=== PATIENT | female | born 1995 | race African-American/Black ===

== ENCOUNTER 2016-10-16 13:29 | Emergency (ER) | payer SELFPAY ==
[~2016-10-16] VITALS: Ht 152.4 cm; Wt 56.7 kg
[2016-10-16 14:03] VITALS: BP 123/67
[2016-10-16 15:10] VITALS: BP 123/67
--- NOTE | 2016-10-16 15:11 | Emergency Room Report ---
History of Present Illness General Chief Complaint: Abdominal Pain Source: Patient Present Illness HPI 21 YO Female presents to the ED c/o intermittent lower abdominal cramping and fullness sensation for 2 weeks rated as 3/10 in severity that is intermittent several times per day. Pt. states she is 28 weeks . denies vaginal d/c or water breaking. Denies decrease in movement. pt. reports very active in terms of movements. Pt. states symptoms have been going on for awhile, and she does not have an OBGYN. pt. states last [place] performed out of state depicted dilated kidneys of the child. pt. denies N/V/F/C bleeding, trauma or fall. Denies dysuria or hematuria. denies Pmhx. Pt is . Allergies: Coded Allergies: No Known Allergies (Unverified , 10/16/16) Patient History Past Medical History: see triage record Past Surgical History: none Pertinent Family History: none Last Menstrual Period: 2015 Now: Yes : 1 Para: 0 Reviewed Nursing Documentation: PMH: Agreed, PSxH: Agreed Nursing Documentation-PMH Past Medical History: No Stated History Review of Systems All Other Systems: negative except mentioned in HPI Physical Exam Vital Signs Date Time Temp Pulse Resp B/P Pulse Ox O2 Delivery O2 Flow Rate FiO2 10/16/16 13:53 98.2 90 18 123/67 99 Room Air Sp02 EP Interpretation: reviewed, normal General Appearance: no apparent distress, alert, GCS 15, non-toxic Head: normocephalic, atraumatic Eyes: bilateral eye PERRL, bilateral eye normal inspection ENT: hearing grossly normal, normal pharynx, no angioedema, normal voice Neck: full range of motion, supple/symm/no masses Respiratory: lungs clear, normal breath sounds, speaking full sentences Cardiovascular #1: regular rate, rhythm, no edema Gastrointestinal: normal bowel sounds, non tender, soft, no guarding, no rebound Rectal: deferred Genitourinary: normal inspection, no CVA tenderness, cervix normal, os closed, other - cervix is not-open, fundal height is midway between the umbilicus and the sternum Musculoskeletal: back normal, gait/station normal, normal range of motion, non- tender Neurologic: alert, oriented x3, responsive, motor strength/tone normal, sensory intact, speech normal Psychiatric: judgement/insight normal, memory normal, mood/affect normal Skin: normal color, no rash, warm/dry, well hydrated Medical Decision Making PA Attestation Dr. Foley is my supervising Physician whom patient management has been discussed with. Diagnostic Impression: Primary Impression: Abdominal pain during intrauterine ER Course 21 YO Female presents to the ED c/o intermittent lower abdominal cramping and fullness sensation for 2 weeks rated as 3/10 in severity that is intermittent several times per day. Pt. states she is 28 weeks . denies vaginal d/c or water breaking. Denies decrease in movement. pt. reports very active in terms of movements. Pt. states symptoms have been going on for awhile, and she does not have an OBGYN. pt. states last US performed out of state depicted dilated kidneys of the child. pt. denies N/V/F/C bleeding, trauma or fall. Denies dysuria or hematuria. denies Pmhx. Pt is . Ddx considered but are not limited to Diverticulitis, acute appy, diarrhea,UC, PUD, GE, pancreatitis, gallstone, labor, PID, miscarriage. Vital signs: are WNL, pt. is afebrile H&PE are most consistent with abdominal pain during intrauterine , cervix is not-open, uterus is enlarged consistent with pt's dates. -Bed side US shows : heart rate of approximately 145-150 ORDERS: - non required at this time, acute abdomen is not suspected. ED INTERVENTIONS: -None required at this time. D/w mother that with current presentation, her PE does not suggest acute abdomen or impending delivery. d/w pt. that it is important for her to establish herself with an OBGYN, and that she should have appropriate testing/monitoring . d/w mother that she is stable from an emergency perspective. offered pt. list of free/local reduced cost clinics for follow up, and also d/w pt. local hospitals that have [facility]. d/w pt. to return to ED with any worsening or new symptom. DISCHARGE: At this time pt. is stable for d/c to home. Will provide printed patient care instructions, and any necessary prescriptions. Care plan and follow up instructions have been discussed with the patient prior to discharge. Last Vital Signs Date Time Temp Pulse Resp B/P Pulse Ox O2 Delivery O2 Flow Rate FiO2 7/5/17 14:03 98.2 18 123/67 99 Room Air 10/16/16 13:53 90 Disposition: HOME, SELF-CARE Condition: Stable Referrals: NOT CHOSEN IPA/,REFERRING (PCP) Patient Instructions: Abdominal Pain During Additional Instructions: Take any previously prescribed medications as directed. Follow up with OBGYN within 48 hours, may require monitoring. Return sooner to ED if new symptoms occur, or current symptoms become worse. - Please note that this Emergency Department Report was dictated using [employer] nurse technology software, occasionally this can lead to erroneous entry secondary to interpretation by the dictation equipment. Dorothea Herron Oct 16, 2016 15:11
== END 2016-10-16 15:10 | disposition home or self-care (01) ==
LOC: EMR 14:45
DX: O26.893 Other specified pregnancy related conditions, third trimester (principal); Z3A.28 28 weeks gestation of pregnancy; R10.9 Unspecified abdominal pain
CPT/HCPCS: 99282